=== PATIENT | female | born 1965 | race African-American/Black ===

== ENCOUNTER 2024-01-16 15:40 | Day surgery (SDC) | payer OTHER ==
[2024-01-16] MEDS: FERRIC CARBOXYMALTOSE 750 MG in SODIUM CHLORIDE 250 ML IVPB ONE (16:13)
[2024-01-16 17:09] VITALS: BP 107/58; PULSE 70; RESP 18; TEMP 98.3
== END 2024-01-16 17:10 | disposition home or self-care (01) ==
LOC: FINFUSION 15:40 → FM/S 15:41 → FINFUSION 17:10
PROVIDERS: ATTEND Internal Medicine
PROC: 3E033GC Introduction of Other Therapeutic Substance into Peripheral Vein, Percutaneous Approach (ICD-10-PCS; principal; 2024-01-16)
DX: D50.9 Iron deficiency anemia, unspecified (principal)
CPT/HCPCS: 96365; J1439

== ENCOUNTER 2024-01-23 14:12 | Day surgery (SDC) | payer OTHER ==
[2024-01-23] MEDS: FERRIC CARBOXYMALTOSE 750 MG in SODIUM CHLORIDE 250 ML IVPB ONE (14:45)
[2024-01-23 16:22] VITALS: BP 125/65; PULSE 65; RESP 18; TEMP 98.1
== END 2024-01-23 15:35 | disposition home or self-care (01) ==
LOC: FM/S 14:12 → FINFUSION 14:12
PROVIDERS: ATTEND Internal Medicine
PROC: 3E033GC Introduction of Other Therapeutic Substance into Peripheral Vein, Percutaneous Approach (ICD-10-PCS; principal; 2024-01-23)
DX: D50.9 Iron deficiency anemia, unspecified (principal)
CPT/HCPCS: 96365; J1439

== ENCOUNTER 2024-07-26 13:17 | Emergency (ER) | payer OTHER ==
[2024-07-26 13:41] VITALS: BP 125/60; PULSE 58; RESP 16; TEMP 98.5; BMI 27.1
[2024-07-26] MEDS ORDERED: ACETAMINOPHEN 325 MG TABLET (FP) ONE (14:02)
[2024-07-26] MEDS: ACETAMINOPHEN 325 MG TABLET (FP) PO ONE (14:07)
== END 2024-07-26 15:00 | disposition left against medical advice (07) ==
LOC: FER 13:17
DX: R10.9 Unspecified abdominal pain (principal)
CPT/HCPCS: 99283-25

== ENCOUNTER 2024-08-02 07:52 | Emergency (ER) | payer OTHER ==
[2024-08-02 08:30] VITALS: TEMP 97.5; BMI 26.6
[2024-08-02] MEDS ORDERED: ACETAMINOPHEN INJECTION 100 ML ONE (08:43)
[2024-08-02] MEDS ORDERED: MAG HYDROX/AL HYDROX/SIMETH 30 ML UNIT-DOSE CUP ONE (08:43)
[2024-08-02] MEDS ORDERED: FAMOTIDINE 20 MG/50 ML IVPB 20 MG/50 ML MG IVPB ONE (08:44)
[2024-08-02] MEDS: MAG HYDROX/AL HYDROX/SIMETH 30 ML UNIT-DOSE CUP PO ONE (09:15)
[2024-08-02] MEDS: ACETAMINOPHEN 1000 MG/100 ML BAG IVPB ONE (09:18)
[2024-08-02 09:26] LABS: BASO % 0.8 % (0-2.0); HEMOGLOBIN 10.3 GM/dL (10.7-15.3); LYMPH % 12.3 % (8-40); MCH 30.7 pg (25.7-33.7); MCHC 33.3 g/dl (32.0-36.0); MEAN CELL VOLUME 92.2 fl (80-96); MEAN PLT VOLUME 7.8 fl (7.5-11.1); MONO % 10.3 % (3.8-10.2); NEUT % 75.6 % (42.8-82.8); PLATELET COUNT 372 10^3/uL (134-434); RBC 3.37 M/mm3 (3.60-5.2); RDW 12.5 % (11.6-15.6); WHITE BLOOD COUNT 4.7 K/mm3 (4.0-10.0)
[2024-08-02] MEDS: FAMOTIDINE 20 MG/50 ML IVPB 20 MG/50 ML MG IVPB ONE (09:30)
[2024-08-02 09:38] LABS: INR 1.06 (0.83-1.09)
[2024-08-02] MEDS ORDERED: ONDANSETRON 4 MG/2 ML VIAL ONE (09:39)
[2024-08-02 09:41] LABS: ACTIVATED PTT 34.7 SECONDS (25.2-36.5)
[2024-08-02] MEDS: ONDANSETRON 4 MG/2 ML VIAL IVPUSH ONE (09:51)
[2024-08-02 09:53] LABS: POTASSIUM 4.2 mmol/L (3.5-5.1)
[2024-08-02 09:56] LABS: ALBUMIN 3.1 g/dl (3.4-5.0); BLOOD UREA NITROGEN 19.4 mg/dL (7-18); CALCIUM 8.7 mg/dL (8.5-10.1); MAGNESIUM 1.9 mg/dL (1.8-2.4)
[2024-08-02 09:59] LABS: CREATININE 1.1 mg/dL (0.55-1.3)
[2024-08-02 10:01] LABS: BILIRUBIN,TOTAL 0.2 mg/dL (0.2-1); TOT PROT 6.4 g/dl (6.4-8.2)
[2024-08-02 12:20] VITALS: BP 122/51; PULSE 62; RESP 20
== END 2024-08-02 13:01 | disposition home or self-care (01) ==
LOC: JER 07:52
PROC: 3E033GC Introduction of Other Therapeutic Substance into Peripheral Vein, Percutaneous Approach (ICD-10-PCS; principal; 2024-08-02)
PROC: 3E033NZ Introduction of Analgesics, Hypnotics, Sedatives into Peripheral Vein, Percutaneous Approach (ICD-10-PCS; 2024-08-02)
PROC: 3E033GC Introduction of Other Therapeutic Substance into Peripheral Vein, Percutaneous Approach (ICD-10-PCS; 2024-08-02)
DX: R10.13 Epigastric pain (principal); R10.12 Left upper quadrant pain; G89.29 Other chronic pain; R53.1 Weakness; K59.00 Constipation, unspecified
CPT/HCPCS: 36415; 74177-TC; 80053; 83690; 83735; 84484; 85025; 85610; 85730; 93005; 93010; 99285-25; J0131; Q9967